=== PATIENT | male | born 1990 | race Two or more races ===

== ENCOUNTER 2018-04-11 18:09 | Inpatient (IN) | payer OTHER ==
[~2018-04-11] VITALS: Ht 188 cm; Wt 83.7 kg
[2018-04-11 18:47] LABS: HEMATOCRIT 45.4 % (38.0-50.0); HEMOGLOBIN 15.9 G/DL (12.5-16.6); MCV 82.8 FL (86-99); PLATELET COUNT 272 K/uL (156-360); RBC DIS.WIDTH-CV 12.3 % (11.8-14.6); RBC DIS.WIDTH-SD 37.2 % (39-53); RED BLOOD COUNT 5.48 M/uL (4.00-5.50); WHITE BLOOD COUNT 16.8 K/uL (4.1-10.2)
[2018-04-11 18:56] LABS: BASOPHIL (%) 0.2 % (0-1); EOSINOPHIL (%) 0 % (0-5); IMMATURE GRANULOCYTE (%) 0.4 % (0.0-0.7); LYMPHOCYTE (%) 3.9 % (15-42); LYMPHOCYTE COUNT 0.6 K/uL (1.0-2.8); MONOCYTE (%) 4.8 % (3-12); MONOCYTE COUNT 0.8 K/uL (0-0.8); NEUTROPHIL (%) 90.7 % (45-76); NEUTROPHIL COUNT 14.8 K/uL (1.8-6.4)
[2018-04-11 19:02] LABS: ALBUMIN 4.7 g/dL (3.2-4.8)
[2018-04-11 19:05] LABS: TOTAL PROTEIN 7.9 g/dL (6.4-8.3)
[2018-04-11 19:08] LABS: ALKALINE PHOSPHATASE 93 IU/L (3-129)
[2018-04-11 19:09] LABS: GFR ESTIMATE (CALCULATED) > 59 mL/min/ (58.99-99999)
[2018-04-11 19:10] LABS: UREA NITROGEN (BUN) 13 mg/dL (9-23)
[2018-04-11 19:12] LABS: ALT (GPT) 48 IU/L (3-49); LIPASE 4 U/L (1.0-51.0)
[2018-04-11 19:19] LABS: CHLORIDE 100 mEq/L (99-109); SODIUM 138 mEq/L (136-147)
[2018-04-11 19:21] LABS: GLUCOSE 118 mg/dL (70-99)
[2018-04-11 19:23] LABS: TOTAL BILIRUBIN 1.1 mg/dL (0.0-1.0)
[2018-04-11 19:26] LABS: AST (GOT) 63 IU/L (2-34)
[2018-04-11] MEDS ORDERED: NAPROXEN500 MG PO (21:16)
[2018-04-11 23:34] VITALS: BP 146/92
[2018-04-11 23:40] LABS: HEMATOCRIT 44.1 % (38.0-50.0); HEMOGLOBIN 15.3 G/DL (12.5-16.6); MCH 28.9 PG (29.0-34.0); MCHC 34.7 G/DL (30.0-36.0); MCV 83.4 FL (86-99); PLATELET COUNT 245 K/uL (156-360); RBC DIS.WIDTH-CV 12.5 % (11.8-14.6); RBC DIS.WIDTH-SD 37.7 % (39-53); RED BLOOD COUNT 5.29 M/uL (4.00-5.50); WHITE BLOOD COUNT 12.2 K/uL (4.1-10.2)
[2018-04-12 05:10] VITALS: BP 130/73
[2018-04-12 07:03] LABS: CHLORIDE 104 MEQ/L (99-109); CREATININE 0.9 MG/DL (0.6-1.3); GFR ESTIMATE (CALCULATED) > 59 mL/min/ (58.99-99999); POTASSIUM 4.5 MEQ/L (3.7-5.4); SODIUM 138 MEQ/L (136-147); UREA NITROGEN (BUN) 13 mg/dL (9-23)
[2018-04-12 07:04] LABS: GLUCOSE 183 mg/dL (70-99)
[2018-04-12 07:16] VITALS: BP 126/79
[2018-04-12 08:57] LABS: APPEARANCE CLEAR ((CLEAR)); BILIRUBIN NEGATIVE; BLOOD SMALL; COLOR YELLOW ((YELLOW)); GLUCOSE (STRIP) NEGATIVE; KETONES NEGATIVE; LEUKOCYTES NEGATIVE; NITRITE NEGATIVE; PROTEIN (STRIP) 30; SPECIFIC GRAVITY 1.056 (1.000-1.030)
[2018-04-12 09:05] LABS: BACTERIA NONE SEEN /HPF; EPITHELIAL CELLS RARE /HPF; MUCUS TRACE /LPF; RED BLOOD CELLS 15-20 /HPF (0-5); UCUL ADDED? NO; WHITE BLOOD CELLS 0-5 /HPF (0-5)
[2018-04-12 15:31] VITALS: BP 135/90
[2018-04-12 23:53] VITALS: BP 129/73
[2018-04-13 05:39] LABS: HEMATOCRIT 41.4 % (38.0-50.0); HEMOGLOBIN 13.8 G/DL (12.5-16.6); MCH 27.9 PG (29.0-34.0); MCHC 33.3 G/DL (30.0-36.0); MCV 83.8 FL (86-99); PLATELET COUNT 266 K/uL (156-360); RBC DIS.WIDTH-CV 12.5 % (11.8-14.6); RBC DIS.WIDTH-SD 37.6 % (39-53); RED BLOOD COUNT 4.94 M/uL (4.00-5.50); WHITE BLOOD COUNT 13.6 K/uL (4.1-10.2)
[2018-04-13 07:26] VITALS: BP 127/90
[2018-04-13 10:19] LABS: HEPATITIS B SURFACE ANTIBODY Nonreactive
[2018-04-13 15:35] VITALS: BP 130/84
[2018-04-13 23:42] VITALS: BP 125/67
[2018-04-14 07:51] VITALS: BP 138/83
[2018-04-14] MEDS ORDERED: CIPRO500 MG PO (08:54)
[2018-04-14] MEDS ORDERED: PREDNISONE10 MG PO (08:54)
[2018-04-14] MEDS ORDERED: BENTYL20 MG PO (08:54)
[2018-04-14] MEDS ORDERED: ZOFRAN4 MG PO (08:54)
[2018-04-14] MEDS ORDERED: FLAGYL500 MG PO (08:54)
[2018-04-14 10:41] LABS: HEPATITIS B SURFACE ANTIGEN Nonreactive
[2018-04-16 22:17] LABS: QGTB-NIL 0.03 IU/mL (()); QUANTIFERON TB GOLD NEGATIVE (Negative)
== END 2018-04-14 10:44 | disposition home or self-care (01) | DRG 386 ==
LOC: EME 18:09 → EDOF 22:09 → 3EAST 22:09 → ENRESERV 22:10 → 3EAST 23:10
PROVIDERS: Hospitalist; Internal Medicine; Nurse Practitioner Family; Physician Assistant
DX: K50.012 Crohn's disease of small intestine with intestinal obstruction (principal); D72.829 Elevated white blood cell count, unspecified; R63.0 Anorexia; T38.0X5A Adverse effect of glucocorticoids and synthetic analogues, initial encounter; F32.9 Major depressive disorder, single episode, unspecified
CPT/HCPCS: 71045; 74018; 74177; 80048; 80053; 81003; 83690; 85025; 85027; 86480 90; 86706; 87340; 99281; 99285; J0744; J1170; J1644; J1885; J2405; J2920; J2930; J3010; J7030; J7042; S0030